=== PATIENT | female | born 1970 | race Caucasian/White ===

== ENCOUNTER 2019-09-01 22:50 | Inpatient (IN) | payer MEDICAID ==
[~2019-09-01] VITALS: Ht 165.1 cm; Wt 77.1 kg
[2019-09-02] MEDS ORDERED: FAMOTIDINE 20MG/2ML VIAL IV STA (02:52)
[2019-09-02] MEDS ORDERED: ONDANSETRON HCL 4MG/2ML INJ IV STA (02:52)
[2019-09-02] MEDS ORDERED: SODIUM CHLORIDE 0.9% 1,000 ML IV ONE (02:52)
[2019-09-02] MEDS ORDERED: MORPHINE SULFATE 4 MG/ML CPJ (NOT FOR IM USE) IV STA (02:52)
[2019-09-02 03:05] LABS: CLARITY URINE CLEAR (CLEAR); COLOR URINE YELLOW (YELLOW); KETONES URINE TRACE (NEGATIVE); LEUKOCYTE ESTERASE URINE TRACE (NEGATIVE); NITRITE URINE NEGATIVE (NEGATIVE); OCCULT BLOOD URINE NEGATIVE (NEGATIVE); PH URINE 5.5 (4.5-8.0); PROTEIN URINE NEGATIVE (NEGATIVE); SPECIFIC GRAVITY URINE 1.028 (1.005-1.030); UROBILINOGEN URINE 0.2 E.U./dL (0.2-1.0)
[2019-09-02 03:14] LABS: HEMATOCRIT. 36.3 % (36.0-48.0); HEMOGLOBIN. 12.1 g/dL (12.0-16.0); MEAN CORPUSCULAR HEMOGLOBIN 27.1 pg (28.0-32.0); MEAN CORPUSCULAR VOLUME 81.4 fL (81.0-99.0); PLATELET 378 x1000/uL (130-400); RED BLOOD CELL COUNT 4.46 mill/uL (4.2-5.4); RED CELL DISTRIBUTION WIDTH 15.1 % (11.6-14.6)
[2019-09-02 03:24] LABS: CHLORIDE 107 mEq/L (98-107)
[2019-09-02 04:42] LABS: PLATELET ESTIMATE NORMAL
[2019-09-02] MEDS ORDERED: CEFTRIAXONE 1 G PREMIX 50 ML IV ONE (06:00)
[2019-09-02] MEDS ORDERED: SODIUM CHLORIDE 0.9% 1,000 ML IV SCH (09:10)
[2019-09-02] MEDS ORDERED: ONDANSETRON HCL 4MG/2ML INJ IV PRN ×2 (09:15→09:30)
[2019-09-02] MEDS ORDERED: MORPHINE SULFATE 2 MG/ML CPJ (NOT FOR IM USE) IV PRN (09:15)
[2019-09-02] MEDS ORDERED: ACETAMINOPHEN 325MG TABLET PO PRN ×2 (09:15→09:30)
[2019-09-02 09:30] VITALS: BP 123/74
[2019-09-02 10:00] VITALS: BP 123/74
[2019-09-02] MEDS ORDERED: OMEG100017 PO (10:06)
[2019-09-02] MEDS: SODIUM CHLORIDE 0.9% 1,000 ML IV SCH (10:51)
[2019-09-02] MEDS: HEPARIN 5000 UNITS/ML VIAL SUBCUT SCH ×2 (10:51→21:34)
[2019-09-02] MEDS: MORPHINE SULFATE 2 MG/ML CPJ (NOT FOR IM USE) IV PRN (10:52)
[2019-09-02 12:00] VITALS: BP 118/76
[2019-09-02] MEDS: FAMOTIDINE 20MG/2ML VIAL IV SCH ×2 (13:55→21:33)
[2019-09-02] MEDS: KCL 10MEQ/50ML PREMIX 50 ML IV SCH ×4 (15:24→21:49)
[2019-09-02 16:00] VITALS: BP 126/84
[2019-09-02 20:00] VITALS: BP 135/85
[2019-09-02] MEDS ORDERED: HEPARIN 5000 UNITS/ML VIAL SUBCUT SCH (21:00)
[2019-09-03] VITALS: BP 131/77
[2019-09-03 04:00] VITALS: BP 119/76
[2019-09-03] MEDS: SODIUM CHLORIDE 0.9% 1,000 ML IV SCH ×2 (04:56→09:44)
[2019-09-03 06:58] LABS: HEMATOCRIT 34.9 % (36.0-48.0); HEMOGLOBIN 11.7 g/dL (12.0-16.0); MEAN CORPUSCULAR HEMOGLOBIN 27.3 pg (28.0-32.0); MEAN CORPUSCULAR VOLUME 81.5 fL (81.0-99.0); PLATELET 362 x1000/uL (130-400); RED BLOOD CELL COUNT 4.29 mill/uL (4.2-5.4); RED CELL DISTRIBUTION WIDTH 15.2 % (11.6-14.6)
[2019-09-03 08:00] VITALS: BP 125/83
[2019-09-03] MEDS: FAMOTIDINE 20MG/2ML VIAL IV SCH ×2 (09:36→20:00)
[2019-09-03] MEDS: HEPARIN 5000 UNITS/ML VIAL SUBCUT SCH ×2 (09:36→20:00)
[2019-09-03 12:00] VITALS: BP 105/54
[2019-09-03 16:00] VITALS: BP 120/74
[2019-09-03] MEDS: MORPHINE SULFATE 2 MG/ML CPJ (NOT FOR IM USE) IV PRN (19:59)
[2019-09-03 20:00] VITALS: BP 123/83
[2019-09-04] VITALS: BP 112/69
[2019-09-04 04:00] VITALS: BP 122/69
[2019-09-04 08:00] VITALS: BP 141/87
[2019-09-04] MEDS: HEPARIN 5000 UNITS/ML VIAL SUBCUT SCH (08:25)
[2019-09-04] MEDS: FAMOTIDINE 20MG/2ML VIAL IV SCH (08:25)
[2019-09-04] MEDS: SODIUM CHLORIDE 0.9% 1,000 ML IV SCH (11:20)
[2019-09-04] MEDS ORDERED: TOPUD PO (11:43)
[2019-09-04] MEDS ORDERED: PANT40TA4 MT (11:43)
[2019-09-04 12:00] VITALS: BP 107/76
[2019-09-04 12:17] VITALS: BP 107/76
[2019-09-04 12:32] VITALS: BP 107/76
== END 2019-09-04 13:09 | disposition home or self-care (01) ==
LOC: ER 22:50 → 6EST 09-02 05:38 → EDBEDREQ 09-02 05:39 → EDBEDREQTM 09-02 05:39 → EDBEDREQSVC 09-02 05:40 → ENRESERV 09-02 07:45 → ER 09-02 09:24
PROVIDERS: ADMIT Internal Medicine; ATTEND Internal Medicine
DX: K80.00 Calculus of gallbladder with acute cholecystitis without obstruction (principal); K76.89 Other specified diseases of liver; E87.6 Hypokalemia; K21.9 Gastro-esophageal reflux disease without esophagitis; K82.8 Other specified diseases of gallbladder
CPT/HCPCS: 36415; 71045; 76705; 78227; 80053; 80076; 81003; 83605; 83735; 84484; 85025; 85027; 93005; 96365; 99285; A9537; J0696; J1642; J1644; J2270; J2405; J3480; J3490; J7030